=== PATIENT | female | born 1955 | race Caucasian/White ===

== ENCOUNTER 2018-06-08 20:39 | Emergency (ER) | payer SELFPAY ==
[~2018-06-08] VITALS: Ht 157.5 cm; Wt 40.4 kg
--- NOTE | 2018-06-08 21:11 | RAD ---
PQRS Compliance Statement: One or more of the following individualized dose reduction techniques were utilized for this examination: 1. Automated exposure control 2. Adjustment of the mA and/or kV according to patient size 3. Use of iterative reconstruction technique CT HEAD WITHOUT CONTRAST History: CODE STROKE Comparison: None. Procedure: Axial images are obtained of the head from the skull base through the vertex without IV contrast. Findings: There is diffuse subarachnoid hemorrhage. Hemorrhage is seen at the foramen magnum and opacifies the basilar cisterns and outlines the sylvian fissures, right worse than left. No hemorrhage at the convexity is identified. There is underlying mild periventricular white matter hypoattenuation. Finding is nonspecific but is commonly due to chronic small vessel ischemic disease. The ventricles and sulci are normal for the patient's age. No mass-effect, midline shift, or obvious acute infarction is identified. Bone windows demonstrate no acute calvarial abnormality. The visualized paranasal sinuses are clear. Mastoid air cells are well aerated. IMPRESSION: There is diffuse acute subarachnoid hemorrhage. The epicenter of the hemorrhage is in the basilar cisterns and along the right sylvian fissure. Underlying aneurysm is possible etiology. Findings discussed with KELLI RODRIGUEZ at 06/08/2018 9:03 PM. FOR INTERNAL CODING PURPOSES Critical result: RESULT CODE: (C) Electronically signed by: Dakotah Fry MD (06/08/2018 9:06 PM) [facility]
[2018-06-08 21:18] LABS: BASO % 0 % (0-3); EOS # 0.2 x10^3/uL (0.0-0.7); EOS % 2 % (0-3); HEMATOCRIT 41.8 % (36.0-47.0); HEMOGLOBIN 14.9 g/dL (12.0-15.5); LYMPH # 4.3 x10^3/uL (1.0-4.8); LYMPH % 32 % (24-48); MEAN CORPUSCULAR HEMOGLOBIN 35 pg (25-35); MEAN CORPUSCULAR HGB CONC 36 g/dL (31-37); MEAN CORPUSCULAR VOLUME 99 fL (79-100); MONO # 1.2 x10^3/uL (0.0-1.1); MONO % 9 % (0-9); NEUT # 7.8 x10^3uL (1.8-7.7); NEUT % 57 % (31-73); PLATELET COUNT 202 x10^3/uL (140-400); RED BLOOD COUNT 4.21 x10^6/uL (3.50-5.40); WHITE BLOOD COUNT 13.6 x10^3/uL (4.0-11.0)
[2018-06-08 21:21] LABS: BILIRUBIN,URINE NEGATIVE (NEG); CLARITY,URINE CLEAR; COLOR,URINE YELLOW; NITRITE,URINE POSITIVE (NEG); PH,URINE 6.5; PROTEIN,URINE NEGATIVE (NEG-TRACE); UROBILINOGEN,URINE 0.2 mg/dL (0.2 mg/dL)
[2018-06-08 21:40] LABS: CALCIUM 9.3 mg/dL (8.5-10.1); CREATININE 0.5 mg/dL (0.6-1.0); GFR 124.2; TOTAL BILIRUBIN 0.5 mg/dL (0.2-1.0)
[2018-06-08 21:41] LABS: BACTERIA,URINE MANY /HPF (0-FEW); RBC,URINE OCC /HPF (0-2)
[2018-06-08 21:42] LABS: SQUAMOUS EPITHELIAL CELL,UR FEW /LPF
[2018-06-08 21:46] LABS: ALBUMIN 3.3 g/dL (3.4-5.0); ALBUMIN/GLOBULIN RATIO 4.7 (1.0-1.7)
--- NOTE | 2018-06-08 21:48 | PHYS DOC ---
Adult General Chief Complaint Chief Complaint: ALTERED MENTAL STATUS HPI HPI Patient is a 62 year old female who presents with Ultram mental status. Per EMS she was last seen normal at approximately 1999. Patient had been drinking tonight. Uncertain as to whether there was a headache. History is limited from the patient due to her altered mental status. EMS reports that she was gripping intermittently in route to the hospital. But was not following directions regularly. [] Review of Systems Review of Systems Unable to assess due to altered mental status All other systems were reviewed and found to be within normal limits, except as documented in this note. Current Medications Current Medications Current Medications Medications (Trade) Dose Ordered Sig/Eriberto Start Time Stop Time Status Last Admin Dose Admin Nicardipine HCl 50 mg/Sodium Chloride 270 ml @ 27 mls/hr ONCE ONCE 06/08/18 21:30 06/09/18 07:29 Allergies Allergies Allergies Coded Allergies Type Severity Reaction Last Updated Verified Unable to Assess 06/08/18 No Physical Exam Physical Exam Constitutional: Well developed, well nourished, minimally responsive. [] HENT: Normocephalic, atraumatic, bilateral external ears normal, oropharynx moist, no oral exudates, nose normal. [] Eyes: PERRLA, EOMI, conjunctiva normal, no discharge. [] Neck: Normal range of motion, no tenderness, supple, no stridor. [] Cardiovascular:Heart rate regular rhythm, no murmur [] Lungs & Thorax: Bilateral breath sounds clear to auscultation [] Abdomen: Bowel sounds normal, soft, no tenderness, no masses, no pulsatile masses. [] Skin: Warm, dry, no erythema, no rash. [] Back: No tenderness, no CVA tenderness. [] Extremities: No tenderness, no cyanosis, no clubbing, ROM intact, no edema. [] Neurologic: GCS of 6, withdrawing to painful stimuli. Tolerating her secretions. [] Psychologic: Unable to assess [] Current Patient Data Vital Signs Vital Signs Date Time Temp Pulse Resp B/P (MAP) Pulse Ox O2 Delivery O2 Flow Rate FiO2 06/08/18 21:53 100 Ventilator Lab Values Laboratory Tests Test 06/08/18 21:00 06/08/18 21:07 White Blood Count 13.6 x10^3/uL (4.0-11.0) H Red Blood Count 4.21 x10^6/uL (3.50-5.40) Hemoglobin 14.9 g/dL (12.0-15.5) Hematocrit 41.8 % (36.0-47.0) Mean Corpuscular Volume 99 fL (79-100) Mean Corpuscular Hemoglobin 35 pg (25-35) Mean Corpuscular Hemoglobin Concent 36 g/dL (31-37) Red Cell Distribution Width 13.0 % (11.5-14.5) Platelet Count 202 x10^3/uL (140-400) Neutrophils (%) (Auto) 57 % (31-73) Lymphocytes (%) (Auto) 32 % (24-48) Monocytes (%) (Auto) 9 % (0-9) Eosinophils (%) (Auto) 2 % (0-3) Basophils (%) (Auto) 0 % (0-3) Neutrophils # (Auto) 7.8 x10^3uL (1.8-7.7) H Lymphocytes # (Auto) 4.3 x10^3/uL (1.0-4.8) Monocytes # (Auto) 1.2 x10^3/uL (0.0-1.1) H Eosinophils # (Auto) 0.2 x10^3/uL (0.0-0.7) Basophils # (Auto) 0.0 x10^3/uL (0.0-0.2) Prothrombin Time 14.0 SEC (11.7-14.0) Prothrombin Time INR 1.1 (0.8-1.1) Ammonia 18 mcmol/L (11-34) Urine Collection Type U cath Urine Color Yellow Urine Clarity Clear Urine pH 6.5 Urine Specific [place] 1.010 Urine Protein Negative mg/dL (NEG-TRACE) Urine Glucose (UA) Negative mg/dL (NEG) Urine Ketones (Stick) Trace mg/dL (NEG) Urine Blood Negative (NEG) Urine Nitrite Positive (NEG) Urine Bilirubin Negative (NEG) Urine Urobilinogen Dipstick 0.2 mg/dL (0.2 mg/dL) Urine Leukocyte Esterase Negative (NEG) Urine RBC Occ /HPF (0-2) Urine WBC 1-4 /HPF (0-4) Urine Squamous Epithelial Cells Few /LPF Urine Bacteria Many /HPF (0-FEW) Urine Mucus Slight /LPF Laboratory Tests 06/08/18 21:00 EKG EKG EKG shows a sinus rhythm at 80 bpm, normal axis, QTC at 507 ms, no ST elevations , no old EKG for comparison. Non-specific ST-T wave depression.[] Radiology/Procedures Radiology/Procedures CT HEAD WITHOUT CONTRAST History: CODE STROKE Comparison: None. Procedure: Axial images are obtained of the head from the skull base through the vertex without IV contrast. Findings: There is diffuse subarachnoid hemorrhage. Hemorrhage is seen at the foramen magnum and opacifies the basilar cisterns and outlines the sylvian fissures, right worse than left. No hemorrhage at the convexity is identified. There is underlying mild periventricular white matter hypoattenuation. Finding is nonspecific but is commonly due to chronic small vessel ischemic disease. The ventricles and sulci are normal for the patient's age. No mass-effect, midline shift, or obvious acute infarction is identified. Bone windows demonstrate no acute calvarial abnormality. The visualized paranasal sinuses are clear. Mastoid air cells are well aerated. IMPRESSION: There is diffuse acute subarachnoid hemorrhage. The epicenter of the hemorrhage is in the basilar cisterns and along the right sylvian fissure. Underlying aneurysm is possible etiology. [] Course & Med Decision Making Course & Med Decision Making Pertinent Labs and Imaging studies reviewed. (See chart for details) ED course: Patient arrived by EMS was taken directly to CT scan. After the return of the CT findings, consultation was made with neurosurgery as well as the hospitalist service. Hospitalist service graciously accepted the patient however neurosurgery felt that the patient would be better served by transfer to a facility with greater capabilities. Consultation was made with JANY. Nicardipine infusion was ordered given the patient's elevated blood pressure with the bleed. She was intubated without any complications. Critical care time 45 minutes for bedside care, managing blood pressure, evaluation of imaging, and discussion with consultants[] Dragon Disclaimer Dragon Disclaimer This electronic medical record was generated, in whole or in part, using a voice recognition dictation system. Departure Departure Impression: Primary Impression: Subarachnoid hemorrhage Additional Impression: Altered mental status Disposition: 05 TRANSFER OTHER Condition: CRITICAL Referrals: NO PCP (PCP) Intubation Procedure Intubation Procedure Intub Indication: Respiratory failure Consent: Unable to give consent due to emergent nature. Medications Used: see nursing note Procedure: The patient was placed in the appropriate position. Intubation was performed with a glide scope 7.5 endotracheal tube. Tube was secured Initial confirmation of placement included bilateral breath sounds, tube fogging, adequate chest rise, adequate pulse oximetry reading. A chest x-ray to verify correct placement of the tube showed appropriate tube position. The patient tolerated the procedure well. Complications: none. Problem Qualifiers Additional Impression: Altered mental status Altered mental status type: coma Coma depth: [place] coma 3-8 Coma timing: at arrival to emergency department Qualified Codes: R40.2432 - Rabia coma scale score 3-8, at arrival to emergency department KELLI RODRIGUEZ Jun 08, 2018 21:48
[2018-06-08 22:03] LABS: POTASSIUM 2.9 mmol/L (3.5-5.1)
[2018-06-08] MEDS: POTASSIUM CHLORIDE 10MEQ 100 ML IV SCH ×2 (22:15→22:38)
[2018-06-08 22:20] VITALS: BP 160/80
[2018-06-08] MEDS ORDERED: PROPOFOL 10 MG/ML (20ML) VIAL. IV ONE (22:45)
--- NOTE | 2018-06-08 23:50 | RAD ---
PORTABLE CHEST 1V Clinical Indication: CODE STROKE, AMS Comparison: None. Findings: The cardiomediastinal silhouette is normal. Lungs are clear. There is no pneumothorax. No pleural effusion is appreciated. No acute bone abnormality. IMPRESSION: No acute cardiopulmonary process. Electronically signed by: Dakotah Fry MD (06/08/2018 11:46 PM) [facility]
--- NOTE | 2018-06-08 23:51 | RAD ---
PORTABLE CHEST SUPINE 1V Clinical Indication: INTUBATION Comparison: AP chest, same day 2104 hours. Findings: There is no endotracheal tube, tip is 1.8 cm superior to the jenna. The cardiomediastinal silhouette is normal. Lungs are clear. There is no pneumothorax. No pleural effusion is appreciated. No acute bone abnormality. IMPRESSION: 1. Endotracheal tube in appropriate position. 2. No acute cardiopulmonary process. Electronically signed by: Dakotah Fry MD (06/08/2018 11:47 PM) [facility]
[2018-06-09] MEDS ORDERED: ETOMIDATE 20 MG/10 ML VIAL. IV ONE (05:30)
[2018-06-09] MEDS ORDERED: SUCCINYLCHOLINE 200 MG/10 ML VIAL. IV ONE (05:30)
[2018-06-09] MEDS ORDERED: LIDOCAINE 2% 100 MG/5 ML SYRINGE. IV ONE (05:30)
--- NOTE | 2018-06-09 06:51 | EKG ---
[facility] [address] [place] [address] Test Date: 2018-06-08 Test Time: 21:09:35 Pat Name: LUZ MARIA GREGORY Department: Room: Gender: F Station Supervisor: : [id number] Requested By: KELLI RODRIGUEZ Order Number: [id number] Reading MD: Shaggy Bruno Measurements Intervals [place] Rate: 79 P: 57 CO: 130 QRS: 48 QRSD: 78 T: 57 QT: 436 QTc: 506 Interpretive Statements SINUS RHYTHM PROLONGED QT NON SPECIFIC ST DEPRESSION Electronically Signed On 06-13-2018 17:08:25 MANAGER OF CASE by Shaggy Bruno
== END 2018-06-08 22:12 | disposition short-term general hospital (02) ==
LOC: ER 20:39
DX: I60.8 Other nontraumatic subarachnoid hemorrhage (principal); R40.2432 Glasgow coma scale score 3-8, at arrival to emergency department
CPT/HCPCS: 31500; 36415; 70450; 71045; 80053; 81001; 82140; 84484; 85025; 85610; 87086; 87186; 93005; 94002; 99291; J0330; J2704